=== PATIENT | female | born 1965 | race Caucasian/White ===

== ENCOUNTER 2023-07-15 01:24 | Inpatient (IN) | payer BC ==
[2023-07-15 02:43] VITALS: BMI 26.3
[2023-07-15] MEDS: fentaNYL 50 mcg/mL 1 mL Vial SLOW IVP SCH (02:46)
[2023-07-15] MEDS ORDERED: Acetaminophen 650 MG Suppository PR PRN (03:01)
[2023-07-15] MEDS ORDERED: Electrolyte Replacement Protocol 1 EACH IVPB SCH (03:01)
[2023-07-15] MEDS ORDERED: Acetaminophen 650 MG/20.3 ML UDCUP PO PRN (03:01)
[2023-07-15] MEDS ORDERED: Dextrose 50% Abboject 50 ML SYRINGE SLOW IVP PRN (03:03)
[2023-07-15] MEDS ORDERED: Glucagon 1 MG/ML KIT IM PRN (03:03)
[2023-07-15] MEDS ORDERED: Dextrose 5% in Water 1,000 ML IV PRN (03:03)
[2023-07-15] MEDS: Morphine 4 MG/ML VIAL SLOW IVP PRN (03:43)
[2023-07-15] MEDS ORDERED: hydrALAZINE 20 MG/ML VIAL SLOW IVP PRN (04:21)
[2023-07-15] MEDS: HYDROcodone/Acetaminophen 5/325 mg Tablet PO PRN (04:47)
[2023-07-15] MEDS: Nicotine 14 MG PATCH TD PRN (04:52)
[2023-07-15] MEDS: Ondansetron PF 4 MG/2 ML Vial IVP PRN (05:07)
[2023-07-15] MEDS: niCARdipine 25 MG in Sodium Chloride 0.9% 250 ML 250 ML IVPB SCH (06:05)
[2023-07-15] MEDS: HumaLOG 300 UNITS/3 ML VIAL SC PRN ×2 (06:46→12:11)
[2023-07-15 07:30] LABS: Hemoglobin A1c 6.4 % (4.0-6.0)
[2023-07-15] MEDS: Labetalol HCl 100 MG/20 ML VIAL SLOW IVP PRN (07:44)
[2023-07-15] MEDS: Famotidine 20 MG TAB PO SCH (07:45)
[2023-07-15] MEDS: Lisinopril 2.5 MG TAB PO SCH (07:46)
[2023-07-15] MEDS: HYDROmorphone 0.5 MG/0.5 ML SYRINGE SLOW IVP SCH (10:31)
[2023-07-15] MEDS ORDERED: Promethazine 25 MG TAB PO PRN (11:15)
[2023-07-15] MEDS ORDERED: Iopamidol-370 76% 500 ML MDV (1 ML CHARGE) ONE (11:51)
[2023-07-15] MEDS: BuPROPion XL 150 MG ER.TAB PO SCH (12:12)
[2023-07-15] MEDS: DULoxetine 60 MG CAP PO SCH (12:13)
[2023-07-15] MEDS ORDERED: tiZANidine HCl 4 MG TAB PO SCH (14:00)
[2023-07-15] MEDS: tiZANidine HCl 4 MG TAB PO PRN (20:12)
[2023-07-15] MEDS: hydrOXYzine 25 MG TAB PO SCH (20:12)
[2023-07-16 05:43] LABS: #Basophils Less than 0.03 10x3/uL (0.0-0.2); %Basophils 0.2 % (0.0-1.0); %Eosinophils 1.4 % (0.0-10.0); %Lymphocytes 19.4 % (21.0-51.0); %Monocytes 8.5 % (0.0-10.0); %Neutrophils 70.1 % (42.0-75.0); Hematocrit 39.9 % (36.0-47.0); Hemoglobin 14.4 g/dL (12.0-16.0); Mean Corpuscular HGB CONC 36.1 g/dL (32.0-36.0); Mean Corpuscular Hemoglobin 30.3 pg (27.0-31.0); Mean Corpuscular Volume 83.8 fL (78.0-98.0); Mean Platelet Volume 9.1 fL (7.4-10.4); Platelet Count 239 10x3/uL (130-400); RBC Distribution Width 12.4 % (11.5-14.5); Red Blood Cell (RBC) Count 4.76 mill/uL (4.20-5.40)
[2023-07-16 06:13] LABS: ALT (SGPT) 19 U/L (8-55); AST (SGOT) 17 U/L (5-34); Albumin 3.7 g/dL (3.5-5.0); Alkaline Phosphatase 70 U/L (40-110); Anion Gap 16 mmol/L (10-20); BUN (Urea Nitrogen) 13 mg/dL (9.8-20.1); Bilirubin, Total 0.7 mg/dL (0.2-1.2); Calc. Creatinine Clearance 110 mL/min (70-130); Carbon Dioxide 27 mmol/L (22-29); Chloride 95 mmol/L (98-107); Estimated GFR 100; Globulin 3.4 g/dL (2.4-3.5); Glucose 174 mg/dL (70-105); Potassium 3.8 mmol/L (3.5-5.1); Protein, Total 7.1 g/dL (6.0-8.3); Sodium 134 mmol/L (136-145)
[2023-07-16] MEDS ORDERED: Electrolyte Replacement Protocol FS PRN (08:00)
[2023-07-16] MEDS: DULoxetine 60 MG CAP PO SCH (08:59)
[2023-07-16] MEDS: BuPROPion XL 150 MG ER.TAB PO SCH (08:59)
[2023-07-16] MEDS: HYDROcodone/Acetaminophen 10/325 mg Tablet PO PRN (20:17)
[2023-07-17 04:53] LABS: #Basophils 0.03 10x3/uL (0.0-0.2); %Basophils 0.3 % (0.0-1.0); %Eosinophils 2.8 % (0.0-10.0); %Lymphocytes 25.1 % (21.0-51.0); %Monocytes 9.3 % (0.0-10.0); %Neutrophils 62.2 % (42.0-75.0); Hematocrit 37.4 % (36.0-47.0); Hemoglobin 13.4 g/dL (12.0-16.0); Mean Corpuscular HGB CONC 35.8 g/dL (32.0-36.0); Mean Corpuscular Hemoglobin 29.6 pg (27.0-31.0); Mean Corpuscular Volume 82.7 fL (78.0-98.0); Mean Platelet Volume 9.6 fL (7.4-10.4); Platelet Count 209 10x3/uL (130-400); RBC Distribution Width 12.4 % (11.5-14.5); Red Blood Cell (RBC) Count 4.52 mill/uL (4.20-5.40)
[2023-07-17 05:16] LABS: INR-International Normal Ratio 1.1; Prothrombin Time 13.7 sec (12.0-14.7)
[2023-07-17 05:17] LABS: PTT 36.5 sec (22.9-36.1)
[2023-07-17 05:38] LABS: ALT (SGPT) 17 U/L (8-55); AST (SGOT) 15 U/L (5-34); Albumin 3.3 g/dL (3.5-5.0); Alkaline Phosphatase 66 U/L (40-110); Anion Gap 13 mmol/L (10-20); BUN (Urea Nitrogen) 12 mg/dL (9.8-20.1); Bilirubin, Total 0.8 mg/dL (0.2-1.2); Calc. Creatinine Clearance 125 mL/min (70-130); Calcium 8.8 mg/dL (7.8-10.44); Carbon Dioxide 26 mmol/L (22-29); Chloride 100 mmol/L (98-107); Estimated GFR 103; Globulin 3.2 g/dL (2.4-3.5); Glucose 140 mg/dL (70-105); Potassium 3.7 mmol/L (3.5-5.1); Protein, Total 6.5 g/dL (6.0-8.3); Sodium 135 mmol/L (136-145)
[2023-07-17 08:07] VITALS: BP 152/80; TEMP 99.3
[2023-07-28 07:19] LABS: Metanephrine,Plasma 36.6 pg/mL (0.0-88.0)
[2023-07-31 07:20] LABS: Metanephrine,Ur 71 ug/L (Undefined); Metanephrines Total-24H 275 ug/24 hr (36-209); Normetanephrine,Ur 359 ug/L (Undefined); Normetanephrines-24H U 1391 ug/24 hr (131-612)
== END 2023-07-17 13:45 | disposition home or self-care (01) | DRG 181 ==
LOC: CCU 02:15 → MSONC 14:43
PROVIDERS: ADMIT Student in an Organized Health Care Education/Training Program; ATTEND Hospitalist
DX: C34.2 Malignant neoplasm of middle lobe, bronchus or lung (principal); C79.72 Secondary malignant neoplasm of left adrenal gland; I16.1 Hypertensive emergency; E27.49 Other adrenocortical insufficiency; E11.9 Type 2 diabetes mellitus without complications; I10 Essential (primary) hypertension; F17.200 Nicotine dependence, unspecified, uncomplicated; Z79.899 Other long term (current) drug therapy; Z90.710 Acquired absence of both cervix and uterus; Z79.84 Long term (current) use of oral hypoglycemic drugs; Z90.49 Acquired absence of other specified parts of digestive tract; Z79.4 Long term (current) use of insulin; R91.8 Other nonspecific abnormal finding of lung field; F17.210 Nicotine dependence, cigarettes, uncomplicated
CPT/HCPCS: 36415; 36416; 70553; 71260; 74176; 74177; 80053; 81001; 83036; 83690; 83835; 85025; 85610; 85730; 93005; 93010; 96374; 96375; 96376; J1170; J1815; J1885; J2270; J2405; J3010; J7050; Q9967

== ENCOUNTER 2023-07-29 10:07 | Observation (INO) | payer BC ==
[~2023-07-29 10:07] MED LIST: Iopamidol-370 76% 500 ML MDV (1 ML CHARGE) ONE
[2023-07-29] MEDS ORDERED: Morphine 4 MG/ML VIAL ONE (11:05)
[2023-07-29] MEDS ORDERED: Ondansetron PF 4 MG/2 ML Vial ONE (11:05)
[2023-07-29 11:21] LABS: #Basophils Less than 0.03 10x3/uL (0.0-0.2); %Basophils 0.2 % (0.0-1.0); %Eosinophils 1.5 % (0.0-10.0); %Monocytes 4.7 % (0.0-10.0); %Neutrophils 79.1 % (42.0-75.0); Hematocrit 39.6 % (36.0-47.0); Hemoglobin 14.6 g/dL (12.0-16.0); Mean Corpuscular HGB CONC 36.9 g/dL (32.0-36.0); Mean Corpuscular Hemoglobin 30.2 pg (27.0-31.0); Mean Corpuscular Volume 81.8 fL (78.0-98.0); Mean Platelet Volume 9.6 fL (7.4-10.4); Platelet Count 286 10x3/uL (130-400); RBC Distribution Width 12.3 % (11.5-14.5); Red Blood Cell (RBC) Count 4.84 mill/uL (4.20-5.40)
[2023-07-29 11:41] LABS: ALT (SGPT) 18 U/L (8-55); AST (SGOT) 14 U/L (5-34); Albumin 3.7 g/dL (3.5-5.0); Alkaline Phosphatase 83 U/L (40-110); Anion Gap 20 mmol/L (10-20); BUN (Urea Nitrogen) 10 mg/dL (9.8-20.1); Bilirubin, Total 0.9 mg/dL (0.2-1.2); Calc. Creatinine Clearance 0 mL/min (70-130); Calcium 9.3 mg/dL (7.8-10.44); Carbon Dioxide 20 mmol/L (22-29); Chloride 97 mmol/L (98-107); Estimated GFR 101; Globulin 3.5 g/dL (2.4-3.5); Glucose 243 mg/dL (70-105); Lipase 15 U/L (8-78); Potassium 4.1 mmol/L (3.5-5.1); Protein, Total 7.2 g/dL (6.0-8.3); Sodium 133 mmol/L (136-145)
[2023-07-29] MEDS ORDERED: Nitroglycerin 50 MG/250 ML BOT 250 ML ONE (13:14)
[2023-07-29] MEDS ORDERED: HYDROmorphone 0.5 MG/0.5 ML SYRINGE ONE (13:14)
[2023-07-29] MEDS ORDERED: Nicotine 14 MG PATCH ONE (14:40)
[2023-07-29 15:43] LABS: Magnesium 1.8 mg/dL (1.6-2.6); Phosphorus 3.5 mg/dL (2.3-4.7)
[2023-07-29] MEDS ORDERED: Dextrose 50% Abboject 50 ML SYRINGE SLOW IVP PRN (16:20)
[2023-07-29] MEDS ORDERED: Dextrose 5% in Water 1,000 ML IV PRN (16:20)
[2023-07-29] MEDS ORDERED: Glucagon 1 MG/ML KIT IM PRN (16:20)
[2023-07-29] MEDS ORDERED: HumaLOG 300 UNITS/3 ML VIAL SC PRN (16:20)
[2023-07-29] MEDS ORDERED: hydrALAZINE 25 MG TAB PO PRN (16:22)
[2023-07-29] MEDS ORDERED: HYDROcodone/Acetaminophen 5/325 mg Tablet PO PRN (16:22)
[2023-07-29] MEDS ORDERED: Nitroglycerin 0.4 MG TAB (25 Tab Bottle) SL PRN (16:23)
[2023-07-29] MEDS ORDERED: Acetaminophen 325 MG TAB PO PRN (16:25)
[2023-07-29] MEDS ORDERED: Calcium Carbonate 500 MG ChewTAB PO PRN (16:25)
[2023-07-29 16:27] LABS: Bacteria/HPF 1+ HPF (None Seen); Bilirubin Negative (Negative); Blood, Urine Negative (Negative); CAUTI Indications for Culture Alt mental st,lethar; Clarity Clear (Clear); Glucose, Urine (Dipstick) 500 mg/dL (Negative); Ketone, Urine 40 mg/dL (Negative); Leukocyte Negative Leu/uL (Negative); Mucous/LPF Rare LPF (<2+); Nitrite Negative (Negative); Protein, Urine (Dipstick) Negative (Neg-Trace); RBC/HPF 0-3 HPF (0-3); Specific Gravity, Urine 1.044 (1.002-1.036); Squamous Epithelial 0-3 HPF (0-3); Urobilinogen Normal mg/dL (Less than 2); WBC/HPF None Seen HPF (0-3)
[2023-07-29 16:28] LABS: Urine Culture Reflex No No
[2023-07-29] MEDS ORDERED: Metoprolol Tartrate 25 MG TAB PO PRN (17:52)
[2023-07-29] MEDS ORDERED: fentaNYL 25 mcg Patch TD SCH (18:00)
[2023-07-29] MEDS: HYDROcodone/Acetaminophen 7.5/325 mg Tablet PO PRN (19:29)
[2023-07-29] MEDS: Famotidine 20 MG TAB PO SCH (19:29)
[2023-07-29] MEDS: glyBURIDE 5 MG TAB PO SCH (19:29)
[2023-07-29] MEDS: Senokot S 8.6-50 MG TAB PO SCH (19:30)
[2023-07-29] MEDS: Polyethylene Glycol 3350 17 GM Packet PO SCH (19:30)
[2023-07-29] MEDS: Ondansetron ODT 4 MG TAB PO PRN (19:42)
[2023-07-29] MEDS: Sodium Chloride 0.9% 1,000 ML IV SCH (20:14)
[2023-07-29] MEDS: Magnesium 2 GM/50 ML(in water) 2 GM in Premix 1 BAG IVPB SCH (20:14)
[2023-07-29 20:26] VITALS: BMI 29.0
[2023-07-29] MEDS: Famotidine/PF 20 mg/2ml Vial SLOW IVP SCH (20:29)
[2023-07-29] MEDS: Morphine 2 MG/ML VIAL SLOW IVP SCH (21:02)
[2023-07-29] MEDS: tiZANidine HCl 4 MG TAB PO SCH (21:03)
[2023-07-30 06:20] LABS: #Basophils Less than 0.03 10x3/uL (0.0-0.2); %Basophils 0.1 % (0.0-1.0); %Eosinophils 5.4 % (0.0-10.0); %Monocytes 10.3 % (0.0-10.0); %Neutrophils 54.7 % (42.0-75.0); Hematocrit 37.3 % (36.0-47.0); Hemoglobin 13.3 g/dL (12.0-16.0); Mean Corpuscular HGB CONC 35.7 g/dL (32.0-36.0); Mean Corpuscular Hemoglobin 30.4 pg (27.0-31.0); Mean Corpuscular Volume 85.2 fL (78.0-98.0); Mean Platelet Volume 9.6 fL (7.4-10.4); Platelet Count 251 10x3/uL (130-400); RBC Distribution Width 12.7 % (11.5-14.5); Red Blood Cell (RBC) Count 4.38 mill/uL (4.20-5.40)
[2023-07-30 06:53] LABS: ALT (SGPT) 14 U/L (8-55); AST (SGOT) 11 U/L (5-34); Albumin 3.2 g/dL (3.5-5.0); Alkaline Phosphatase 66 U/L (40-110); Anion Gap 15 mmol/L (10-20); BUN (Urea Nitrogen) 7 mg/dL (9.8-20.1); Bilirubin, Total 0.5 mg/dL (0.2-1.2); Calc. Creatinine Clearance 124 mL/min (70-130); Calcium 8.4 mg/dL (7.8-10.44); Carbon Dioxide 23 mmol/L (22-29); Chloride 102 mmol/L (98-107); Estimated GFR 104; Glucose 113 mg/dL (70-105); Potassium 3.6 mmol/L (3.5-5.1); Protein, Total 6.2 g/dL (6.0-8.3); Sodium 136 mmol/L (136-145)
[2023-07-30] MEDS: Morphine 4 MG/ML VIAL ONE (09:49)
[2023-07-30] MEDS: BuPROPion XL 150 MG ER.TAB PO SCH (09:50)
[2023-07-30] MEDS: DULoxetine 60 MG CAP PO SCH (09:50)
[2023-07-30] MEDS: Lisinopril 2.5 MG TAB PO SCH (09:53)
[2023-07-30] MEDS: Milk Of Magnesia 30 ML UDCUP PO SCH (10:04)
[2023-07-30] MEDS: Morphine 2 MG/ML VIAL SLOW IVP PRN (12:09)
[2023-07-30] MEDS: fentaNYL 12 mcg Patch TD SCH (12:10)
[2023-07-30] MEDS: HYDROcodone/Acetaminophen 10/325 mg Tablet PO PRN (14:43)
[2023-07-30] MEDS: Nicotine 21 MG PATCH TD SCH (18:35)
[2023-07-30] MEDS: HumaLOG 300 UNITS/3 ML VIAL SC PRN (18:36)
[2023-07-31] MEDS: Ondansetron PF 4 MG/2 ML Vial IVP PRN (03:13)
[2023-07-31] MEDS: glyBURIDE 5 MG TAB PO SCH (08:34)
[2023-07-31] MEDS: Morphine ER 15 MG TAB PO SCH (09:53)
[2023-07-31 12:12] VITALS: BP 164/92; TEMP 98.4
[2023-07-31] MEDS ORDERED: glyBURIDE 5 MG TAB PO SCH (16:30)
[2023-07-31] MEDS ORDERED: Morphine ER 15 MG TAB PO SCH (21:00)
== END 2023-07-31 14:42 | disposition home or self-care (01) ==
LOC: ERS 10:07 → ERHOLD 14:00 → 2SW 18:08 → MSONC 07-30 18:47
PROVIDERS: ADMIT Internal Medicine; ATTEND Internal Medicine
DX: R11.2 Nausea with vomiting, unspecified (principal); K59.00 Constipation, unspecified; E11.9 Type 2 diabetes mellitus without complications; I10 Essential (primary) hypertension; F41.9 Anxiety disorder, unspecified; F17.210 Nicotine dependence, cigarettes, uncomplicated; I16.0 Hypertensive urgency; E83.42 Hypomagnesemia; Z90.710 Acquired absence of both cervix and uterus; Z90.49 Acquired absence of other specified parts of digestive tract; Z98.890 Other specified postprocedural states; Z79.84 Long term (current) use of oral hypoglycemic drugs; Z88.8 Allergy status to other drugs, medicaments and biological substances; Z79.899 Other long term (current) drug therapy
CPT/HCPCS: 36415; 36416; 70450; 74177; 80053; 81001; 82533; 83690; 83735; 84100; 85025; 93005; 94760; 96361; 96374; 96375; 96376; G0378; J1170; J1815; J2270; J2272; J2405; J3475; J7050; Q0162; Q9967

== ENCOUNTER 2023-08-01 08:15 | Day surgery (SDC) | payer BC ==
[2023-08-01] MEDS ORDERED: Lidocaine 1% PF 5 ML VIAL ONE (09:43)
[2023-08-01] MEDS ORDERED: Sodium Bicarbonate 2.5 MEQ/5 ML SDV ONE (09:43)
[2023-08-01] MEDS ORDERED: fentaNYL 50 mcg/mL 1 mL Vial ONE (09:44)
[2023-08-01] MEDS ORDERED: Midazolam HCl 2 mg/2 ml Vial ONE (09:44)
== END 2023-08-01 14:00 | disposition home or self-care (01) ==
LOC: CT 08:15
PROVIDERS: ATTEND Nurse Practitioner Family
PROC: 0BBD3ZX Excision of Right Middle Lung Lobe, Percutaneous Approach, Diagnostic (ICD-10-PCS; principal; 2023-08-01)
DX: J85.0 Gangrene and necrosis of lung (principal); R91.1 Solitary pulmonary nodule; E11.9 Type 2 diabetes mellitus without complications; F17.210 Nicotine dependence, cigarettes, uncomplicated; E27.49 Other adrenocortical insufficiency; I16.1 Hypertensive emergency; Z88.8 Allergy status to other drugs, medicaments and biological substances; Z90.49 Acquired absence of other specified parts of digestive tract; Z90.710 Acquired absence of both cervix and uterus
CPT/HCPCS: 32408; 71045; 77012; 88305; 88333; 88334; J2250; J3010

== ENCOUNTER 2023-08-21 08:00 | Outpatient (CLI) | payer BC | END 2023-08-21 08:01 | disposition home or self-care (01) | LOC: PET 08:00 | PROVIDERS: ATTEND Internal Medicine Hematology & Oncology | DX: C34.31 Malignant neoplasm of lower lobe, right bronchus or lung (principal); C34.2 Malignant neoplasm of middle lobe, bronchus or lung; C77.1 Secondary and unspecified malignant neoplasm of intrathoracic lymph nodes; C79.72 Secondary malignant neoplasm of left adrenal gland; C79.71 Secondary malignant neoplasm of right adrenal gland | CPT/HCPCS: 78815; A9552 ==

== ENCOUNTER 2023-09-03 10:43 | Outpatient (CLI) | payer BC ==
[2023-09-03 11:58] LABS: Bilirubin Neg (Negative); Blood, Urine Negative (Negative); Clarity Clear (Clear); Glucose, Urine (Dipstick) >=1000 mg/dL (Negative); Ketone, Urine Negative (Negative); Leukocyte Negative (Negative); Nitrite Negative (Negative); Protein, Urine (Dipstick) Negative (Neg-Trace); Urobilinogen Normal mg/dL (Less than 2)
[2023-09-03 12:01] LABS: Hematocrit 43.3 % (34.9-44.5); Hemoglobin 14.9 g/dL (12.0-15.5); Mean Corpuscular HGB CONC 34.4 g/dL (32.0-36.0); Mean Corpuscular Hemoglobin 28.7 pg (27.0-33.0); Mean Corpuscular Volume 83.4 fL (81.6-98.3); Mean Platelet Volume 9.6 fL (7.4-10.4); Platelet Count 268 10x3/uL (150-450); RBC Distribution Width 12.5 % (11.5-14.5); Red Blood Cell (RBC) Count 5.19 10x6/uL (3.90-5.03); White Blood Cell (WBC) Count 8.2 10x3/uL (3.5-10.5)
[2023-09-03 12:32] LABS: PTT 27.7 sec (22.0-33.0); Prothrombin Time 10.6 sec (9.5-12.1)
[2023-09-03 12:33] LABS: Bacteria/HPF Rare-Few HPF (None Seen); RBC/HPF 0-3 HPF (0-3); Squamous Epithelial 0-3 HPF (0-3); WBC/HPF None Seen HPF (0-3)
[2023-09-03 12:37] LABS: Anion Gap 14 mmol/L (10-20); BUN (Urea Nitrogen) 9 mg/dL (9.8-20.1); Calc. Creatinine Clearance 0 mL/min (70-130); Calcium 9.6 mg/dL (7.8-10.44); Carbon Dioxide 27 mmol/L (22-29); Chloride 99 mmol/L (98-107); Estimated GFR 95; Glucose 173 mg/dL (70-105); Potassium 4.2 mmol/L (3.5-5.1); Sodium 136 mmol/L (136-145)
== END 2023-09-03 10:44 | disposition home or self-care (01) ==
LOC: LABBT 10:43
PROVIDERS: ATTEND Urology
DX: Z01.818 Encounter for other preprocedural examination (principal); E27.8 Other specified disorders of adrenal gland; C34.90 Malignant neoplasm of unspecified part of unspecified bronchus or lung; C79.89 Secondary malignant neoplasm of other specified sites
CPT/HCPCS: 71046; 80048; 81001; 85027; 85610; 85730; 86850; 86900; 86901; 87086

== ENCOUNTER 2023-11-05 11:43 | Outpatient (CLI) | payer BC ==
[~2023-11-05 11:43] MED LIST changes: -Iopamidol-370 76% 500 ML MDV (1 ML CHARGE) ONE; +Magnevist 469MG/ML 20 ML VIAL ONE
== END 2023-11-05 11:44 | disposition home or self-care (01) ==
LOC: PET 11:43
PROVIDERS: ATTEND Internal Medicine Hematology & Oncology
DX: C78.00 Secondary malignant neoplasm of unspecified lung (principal); I67.82 Cerebral ischemia; R90.82 White matter disease, unspecified
CPT/HCPCS: 70553; 76376; 78815; A9552; A9579

== ENCOUNTER 2023-11-30 10:47 | Outpatient (CLI) | payer BC | END 2023-11-30 10:48 | disposition home or self-care (01) | LOC: BICRAD 10:47 | PROVIDERS: ATTEND Nurse Practitioner Family | DX: C34.31 Malignant neoplasm of lower lobe, right bronchus or lung (principal); C80.1 Malignant (primary) neoplasm, unspecified; Z45.2 Encounter for adjustment and management of vascular access device; R91.8 Other nonspecific abnormal finding of lung field | CPT/HCPCS: 71046 ==

== ENCOUNTER 2023-12-04 10:39 | Emergency (ER) | payer BC ==
[~2023-12-04 10:39] MED LIST changes: +Iopamidol 370 76% 100 ML VIAL ONE; -Magnevist 469MG/ML 20 ML VIAL ONE
[2023-12-04 12:29] LABS: INR-International Normal Ratio 1.1; PTT 32.7 sec (22.9-36.1); Prothrombin Time 14.7 sec (12.0-14.7)
[2023-12-04 12:37] LABS: ALT (SGPT) 20 U/L (8-55); AST (SGOT) 14 U/L (5-34); Albumin 3.3 g/dL (3.5-5.0); Alkaline Phosphatase 80 U/L (40-110); Anion Gap 14 mmol/L (10-20); BUN (Urea Nitrogen) 11 mg/dL (9.8-20.1); Bilirubin, Total 0.3 mg/dL (0.2-1.2); Calc. Creatinine Clearance 0 mL/min (70-130); Calcium 9.4 mg/dL (7.8-10.44); Carbon Dioxide 16 mmol/L (22-29); Chloride 105 mmol/L (98-107); Estimated GFR 92; Globulin 4.1 g/dL (2.4-3.5); Glucose 128 mg/dL (70-105); Potassium 4.4 mmol/L (3.5-5.1); Protein, Total 7.4 g/dL (6.0-8.3); Sodium 131 mmol/L (136-145); Troponin I 0.022 ng/mL (< 0.028)
[2023-12-04 12:38] LABS: Hematocrit 25.8 % (36.0-47.0); Hemoglobin 9.3 g/dL (12.0-16.0); Mean Platelet Volume 9.8 fL (7.4-10.4); Platelet Count 91 10x3/uL (130-400); RBC Distribution Width 15.7 % (11.5-14.5); Red Blood Cell (RBC) Count 3.44 mill/uL (4.20-5.40)
[2023-12-04 12:59] LABS: Band 2 % (5-11); Eosinophils 1 % (0-10); Large Platelets 4.3 % (0-5); Lymphocytes 64 % (21-51); Monocytes 11 % (0-10); Neutrophil 21 % (42-75); Platelet Adequacy Comment Platelets Decreased; Polychromasia SLIGHT = 2-3 cells HPF (0-2); Smudge Cells 7.8 %; Spherocytes SLIGHT = 1-5 cells HPF (None Seen)
[2023-12-04] MEDS ORDERED: cefTRIAXone (ROCEPHIN) 1 GM VIAL ONE (14:29)
[2023-12-04] MEDS ORDERED: Dexamethasone 10 MG/ML VIAL ONE (14:29)
[2023-12-04] MEDS ORDERED: Sodium Chloride 0.9% 100 ML ONE (14:30)
[2023-12-04] MEDS ORDERED: Ipratropium/Albuterol 3 ML NEB ONE (14:32)
== END 2023-12-04 16:10 | disposition home or self-care (01) ==
LOC: ERS 10:39
DX: J15.9 Unspecified bacterial pneumonia (principal); I10 Essential (primary) hypertension; E11.9 Type 2 diabetes mellitus without complications; F17.210 Nicotine dependence, cigarettes, uncomplicated
CPT/HCPCS: 71275; 80053; 83605; 83880; 84484; 85025; 85610; 85730; 93005; 94640; 96374; 96375; J0696; J1100; J7620; Q9967

== ENCOUNTER 2024-01-07 08:14 | Day surgery (SDC) | payer BC ==
[2024-01-07] MEDS ORDERED: diphenhydrAMINE 25 MG CAP ONE (10:14)
[2024-01-07] MEDS ORDERED: Acetaminophen 500 MG TAB ONE (10:14)
[2024-01-07] MEDS: diphenhydrAMINE 25 MG CAP PO SCH (10:15)
[2024-01-07] MEDS: Acetaminophen 500 MG TAB PO SCH (10:15)
[2024-01-07 13:06] VITALS: BP 138/70; TEMP 99.3
== END 2024-01-07 13:20 | disposition home or self-care (01) ==
LOC: ONC/OP 08:14
PROVIDERS: ATTEND Internal Medicine Hematology & Oncology
DX: D64.9 Anemia, unspecified (principal); D69.6 Thrombocytopenia, unspecified
CPT/HCPCS: 36430; 86850; 86900; 86901; 86922; J1642; P9016

== ENCOUNTER 2024-01-22 13:00 | Outpatient (CLI) | payer BC | END 2024-01-22 15:00 | disposition home or self-care (01) | LOC: PET 13:00 | PROVIDERS: ATTEND Internal Medicine Hematology & Oncology | DX: C34.31 Malignant neoplasm of lower lobe, right bronchus or lung (principal); R59.0 Localized enlarged lymph nodes; R91.8 Other nonspecific abnormal finding of lung field | CPT/HCPCS: 78815; A9552 ==

== ENCOUNTER 2024-02-04 01:47 | Observation (INO) | payer BC ==
[2024-02-04] MEDS ORDERED: Ketorolac Tromethamine 30 MG (1 mL) VIAL ONE (01:59)
[2024-02-04] MEDS ORDERED: Ondansetron PF 4 MG/2 ML Vial ONE (01:59)
[2024-02-04] MEDS ORDERED: Lorazepam 2 MG/ML VIAL ONE (01:59)
[2024-02-04] MEDS ORDERED: fentaNYL 50 mcg/mL 1 mL Vial ONE (01:59)
[2024-02-04] MEDS ORDERED: hydrALAZINE 20 MG/ML VIAL ONE (03:08)
[2024-02-04 03:27] LABS: #Basophils Less than 0.03 10x3/uL (0.0-0.2); #Eosinophils Less than 0.03 10x3/uL (0.0-0.7); %Basophils 0.2 % (0.0-1.0); %Eosinophils 0.4 % (0.0-10.0); %Monocytes 6.8 % (0.0-10.0); %Neutrophils 67.9 % (42.0-75.0); Hematocrit 29.5 % (36.0-47.0); Hemoglobin 10.1 g/dL (12.0-16.0); Mean Corpuscular HGB CONC 34.2 g/dL (32.0-36.0); Mean Corpuscular Hemoglobin 31.1 pg (27.0-31.0); Mean Corpuscular Volume 90.8 fL (78.0-98.0); Mean Platelet Volume 9.2 fL (7.4-10.4); Platelet Count 152 10x3/uL (130-400); RBC Distribution Width 17.1 % (11.5-14.5); Red Blood Cell (RBC) Count 3.25 mill/uL (4.20-5.40)
[2024-02-04 03:40] LABS: ALT (SGPT) 9 U/L (8-55); AST (SGOT) 12 U/L (5-34); Albumin 3.6 g/dL (3.5-5.0); Alkaline Phosphatase 75 U/L (40-110); Anion Gap 16 mmol/L (10-20); BUN (Urea Nitrogen) 12 mg/dL (9.8-20.1); Bilirubin, Total 0.4 mg/dL (0.2-1.2); Calc. Creatinine Clearance 0 mL/min (70-130); Calcium 8.8 mg/dL (7.8-10.44); Carbon Dioxide 21 mmol/L (22-29); Chloride 96 mmol/L (98-107); Estimated GFR 101; Globulin 3.9 g/dL (2.4-3.5); Glucose 169 mg/dL (70-105); Lipase 13 U/L (8-78); Potassium 3.7 mmol/L (3.5-5.1); Protein, Total 7.5 g/dL (6.0-8.3); Sodium 129 mmol/L (136-145)
[2024-02-04 03:45] LABS: Troponin I 0.019 ng/mL (< 0.028)
[2024-02-04] MEDS ORDERED: Morphine 4 MG/ML VIAL ONE (05:01)
[2024-02-04 05:14] LABS: Bacteria/HPF None Seen HPF (None Seen); Bilirubin Negative (Negative); Blood, Urine Negative (Negative); CAUTI Indications for Culture Immunosuppressed; Clarity Clear (Clear); Glucose, Urine (Dipstick) 100 mg/dL (Negative); Ketone, Urine Negative (Negative); Leukocyte Negative Leu/uL (Negative); Nitrite Negative (Negative); Protein, Urine (Dipstick) Negative (Neg-Trace); RBC/HPF None Seen HPF (0-3); Specific Gravity, Urine 1.021 (1.002-1.036); Squamous Epithelial 0-3 HPF (0-3); Urobilinogen Normal mg/dL (Less than 2); WBC/HPF 0-3 HPF (0-3)
[2024-02-04 05:17] LABS: Urine Culture Reflex Yes Yes
[2024-02-04 06:50] VITALS: BMI 23.3
[2024-02-04] MEDS ORDERED: Labetalol HCl 100 MG/20 ML VIAL SLOW IVP PRN (06:55)
[2024-02-04] MEDS ORDERED: Dextrose 5% in Water 1,000 ML IV PRN (06:57)
[2024-02-04] MEDS ORDERED: Dextrose 50% Abboject 50 ML SYRINGE SLOW IVP PRN (06:57)
[2024-02-04] MEDS ORDERED: Glucagon 1 MG/ML KIT IM PRN (06:57)
[2024-02-04] MEDS ORDERED: Insulin Regular, Human 100 UNIT/ML 10 ML VIAL SC PRN ×2 (06:57)
[2024-02-04] MEDS ORDERED: Acetaminophen 325 MG TAB PO PRN (06:59)
[2024-02-04] MEDS ORDERED: Ondansetron ODT 4 MG TAB PO PRN (06:59)
[2024-02-04] MEDS ORDERED: Calcium Carbonate 500 MG ChewTAB PO PRN (06:59)
[2024-02-04 08:02] LABS: Magnesium 1.7 mg/dL (1.6-2.6); Phosphorus 3.7 mg/dL (2.3-4.7)
[2024-02-04] MEDS ORDERED: Ondansetron ODT 4 MG TAB ONE (08:24)
[2024-02-04] MEDS: Bisacodyl 10 MG SUPP PR SCH ×2 (09:50→10:07)
[2024-02-04] MEDS: Fleet Saline Enema 133 ML BOT PR SCH ×2 (09:51→10:06)
[2024-02-04] MEDS: Lactated Ringer's 1,000 ML IV SCH (10:06)
[2024-02-04] MEDS: Senokot S 8.6-50 MG TAB PO SCH (10:06)
[2024-02-04] MEDS: Heparin 5,000 UNITS/ML VIAL SC SCH (10:06)
[2024-02-04] MEDS: Ondansetron PF 4 MG/2 ML Vial IVP PRN (10:06)
[2024-02-04] MEDS: Polyethylene Glycol 3350 17 GM Packet PO SCH (10:07)
[2024-02-04] MEDS: fentaNYL 25 mcg Patch TD SCH (12:49)
[2024-02-04] MEDS: Lorazepam 2 MG/ML VIAL SLOW IVP PRN (12:49)
[2024-02-04] MEDS: Ketorolac Tromethamine 30 MG (1 mL) VIAL IVP PRN (12:49)
[2024-02-04] MEDS ORDERED: Iopamidol-370 76% 500 ML MDV (1 ML CHARGE) ONE (13:32)
[2024-02-04] MEDS ORDERED: Promethazine 25 MG TAB PO PRN (15:09)
[2024-02-04] MEDS ORDERED: fentaNYL 25 mcg Patch TD SCH ×2 (15:15→16:00)
[2024-02-04] MEDS: Nicotine 21 MG PATCH TD SCH (16:21)
[2024-02-04] MEDS: fentaNYL 12 mcg Patch TD SCH (16:21)
[2024-02-04] MEDS: hydrOXYzine 25 MG TAB PO SCH (21:21)
[2024-02-04] MEDS: Melatonin 3 MG TAB PO SCH (21:21)
[2024-02-04] MEDS: glyBURIDE 5 MG TAB PO SCH (21:21)
[2024-02-04] MEDS: tiZANidine HCl 4 MG TAB PO SCH (21:21)
[2024-02-05 06:31] LABS: #Basophils Less than 0.03 10x3/uL (0.0-0.2); %Basophils 0.2 % (0.0-1.0); %Eosinophils 1.6 % (0.0-10.0); %Lymphocytes 35.4 % (21.0-51.0); %Neutrophils 53.2 % (42.0-75.0); Hemoglobin 10.8 g/dL (12.0-16.0); Mean Corpuscular HGB CONC 34.8 g/dL (32.0-36.0); Mean Corpuscular Hemoglobin 31.5 pg (27.0-31.0); Mean Corpuscular Volume 90.4 fL (78.0-98.0); Mean Platelet Volume 9.3 fL (7.4-10.4); Platelet Count 197 10x3/uL (130-400); RBC Distribution Width 17.5 % (11.5-14.5); Red Blood Cell (RBC) Count 3.43 mill/uL (4.20-5.40)
[2024-02-05 06:56] LABS: ALT (SGPT) 9 U/L (8-55); AST (SGOT) 16 U/L (5-34); Albumin 3.4 g/dL (3.5-5.0); Alkaline Phosphatase 65 U/L (40-110); Anion Gap 13 mmol/L (10-20); BUN (Urea Nitrogen) 11 mg/dL (9.8-20.1); Bilirubin, Total 0.5 mg/dL (0.2-1.2); Calc. Creatinine Clearance 90 mL/min (70-130); Calcium 9.2 mg/dL (7.8-10.44); Carbon Dioxide 23 mmol/L (22-29); Chloride 95 mmol/L (98-107); Estimated GFR 100; Globulin 3.5 g/dL (2.4-3.5); Glucose 60 mg/dL (70-105); Protein, Total 6.9 g/dL (6.0-8.3); Sodium 127 mmol/L (136-145)
[2024-02-05 06:58] LABS: Phosphorus 5.1 mg/dL (2.3-4.7)
[2024-02-05 08:40] VITALS: BP 101/66; TEMP 97.4
[2024-02-05] MEDS: BuPROPion XL 150 MG ER.TAB PO SCH (09:31)
[2024-02-05] MEDS: Lisinopril 10 MG TAB PO SCH (09:31)
[2024-02-05] MEDS: DULoxetine 60 MG CAP PO SCH (09:32)
[2024-02-05] MEDS: FLU (Fluarix Triv) TS24-25(6MOS UP)/PF 45 MCG/0.5 ML Syringe IM ONE (09:32)
[2024-02-07] MEDS ORDERED: fentaNYL 25 mcg Patch TD SCH (16:00)
== END 2024-02-05 13:58 | disposition home or self-care (01) ==
LOC: ERS 01:47 → ERHOLD 04:53 → T4-A 09:24
PROVIDERS: ADMIT Internal Medicine; ATTEND Internal Medicine
DX: C74.90 Malignant neoplasm of unspecified part of unspecified adrenal gland (principal); F41.9 Anxiety disorder, unspecified; C79.9 Secondary malignant neoplasm of unspecified site; E11.9 Type 2 diabetes mellitus without complications; E87.1 Hypo-osmolality and hyponatremia; D64.9 Anemia, unspecified; I10 Essential (primary) hypertension; E83.42 Hypomagnesemia; Z90.710 Acquired absence of both cervix and uterus; Z90.49 Acquired absence of other specified parts of digestive tract; Z90.89 Acquired absence of other organs; Z98.890 Other specified postprocedural states; F17.200 Nicotine dependence, unspecified, uncomplicated; Z79.84 Long term (current) use of oral hypoglycemic drugs; Z79.899 Other long term (current) drug therapy
CPT/HCPCS: 36415; 36416; 71045; 74177; 80053; 81001; 83690; 83735; 84100; 84484; 85025; 87086; 93005; 96372; 96375; 96376; G0378; J0360; J1644; J1885; J2060; J2272; J2405; J3010; J7120; Q0162; Q9967

== ENCOUNTER 2024-02-19 08:43 | Inpatient (IN) | payer BC ==
[2024-02-19] MEDS ORDERED: Morphine 4 MG/ML VIAL ONE (09:18)
[2024-02-19] MEDS ORDERED: Ondansetron PF 4 MG/2 ML Vial ONE (09:19)
[2024-02-19] MEDS ORDERED: Morphine 2 MG/ML VIAL ONE (09:19)
[2024-02-19 09:46] LABS: #Basophils Less than 0.03 10x3/uL (0.0-0.2); %Basophils 0.1 % (0.0-1.0); %Eosinophils 0.6 % (0.0-10.0); %Lymphocytes 21.4 % (21.0-51.0); %Monocytes 5.5 % (0.0-10.0); %Neutrophils 71.5 % (42.0-75.0); Hematocrit 30.7 % (36.0-47.0); Hemoglobin 10.8 g/dL (12.0-16.0); Mean Corpuscular HGB CONC 35.2 g/dL (32.0-36.0); Mean Corpuscular Hemoglobin 32.3 pg (27.0-31.0); Mean Corpuscular Volume 91.9 fL (78.0-98.0); Mean Platelet Volume 8.9 fL (7.4-10.4); Platelet Count 176 10x3/uL (130-400); RBC Distribution Width 16.6 % (11.5-14.5); Red Blood Cell (RBC) Count 3.34 mill/uL (4.20-5.40)
[2024-02-19 10:09] LABS: Prothrombin Time 13.5 sec (12.0-14.7)
[2024-02-19 10:10] LABS: PTT 32.1 sec (22.9-36.1)
[2024-02-19] MEDS ORDERED: fentaNYL 50 mcg/mL 1 mL Vial ONE (10:11)
[2024-02-19 10:13] LABS: ALT (SGPT) 13 U/L (8-55); AST (SGOT) 16 U/L (5-34); Albumin 3.8 g/dL (3.5-5.0); Alkaline Phosphatase 76 U/L (40-110); Anion Gap 19 mmol/L (10-20); BUN (Urea Nitrogen) 13 mg/dL (9.8-20.1); Bilirubin, Total 0.5 mg/dL (0.2-1.2); Calc. Creatinine Clearance 0 mL/min (70-130); Calcium 9.7 mg/dL (7.8-10.44); Carbon Dioxide 19 mmol/L (22-29); Chloride 100 mmol/L (98-107); Estimated GFR 91; Globulin 4.2 g/dL (2.4-3.5); Glucose 92 mg/dL (70-105); Potassium 5.1 mmol/L (3.5-5.1); Sodium 133 mmol/L (136-145)
[2024-02-19] MEDS ORDERED: Insulin Lispro 100 UNIT/ML 10 ML VIAL SC PRN (10:39)
[2024-02-19] MEDS ORDERED: Glucagon 1 MG/ML KIT IM PRN (10:39)
[2024-02-19] MEDS ORDERED: Dextrose 5% in Water 1,000 ML IV PRN (10:39)
[2024-02-19] MEDS ORDERED: Dextrose 50% Abboject 50 ML SYRINGE SLOW IVP PRN (10:39)
[2024-02-19] MEDS ORDERED: Acetaminophen 325 MG TAB PO PRN (10:39)
[2024-02-19] MEDS ORDERED: hydrALAZINE 20 MG/ML VIAL SLOW IVP PRN (10:39)
[2024-02-19] MEDS: Methocarbamol 1 GM (10 mL) VIAL SLOW IVP SCH (11:54)
[2024-02-19] MEDS: Morphine 2 MG/ML VIAL SLOW IVP PRN (11:59)
[2024-02-19] MEDS ORDERED: CEFAZOLIN 2 GM in Sodium Chloride 0.9% 100 ML IVPB SCH (12:00)
[2024-02-19 12:08] VITALS: BMI 23.0
[2024-02-19] MEDS: TETANUS, DIPHTHERIA TOX,ADULT (TDVAX) 0.5 ML VIAL IM ONE (12:11)
[2024-02-19] MEDS: Nicotine 21 MG PATCH TOP SCH (12:57)
[2024-02-19] MEDS: HYDROcodone/Acetaminophen 5/325 mg Tablet PO PRN (13:02)
[2024-02-19] MEDS: Methocarbamol 500 MG TAB PO PRN (16:15)
[2024-02-19] MEDS: glyBURIDE 5 MG TAB PO SCH (16:39)
[2024-02-19] MEDS: metFORMIN XR 500 MG ER.TAB PO SCH (17:57)
[2024-02-19] MEDS: tiZANidine HCl 4 MG TAB PO SCH (21:26)
[2024-02-19] MEDS: hydrOXYzine 25 MG TAB PO SCH (21:26)
[2024-02-19] MEDS: HYDROcodone/Acetaminophen 10/325 mg Tablet PO PRN (22:19)
[2024-02-20 05:18] LABS: #Basophils Less than 0.03 10x3/uL (0.0-0.2); %Basophils 0.3 % (0.0-1.0); %Eosinophils 1.2 % (0.0-10.0); %Lymphocytes 24.1 % (21.0-51.0); %Monocytes 6.7 % (0.0-10.0); %Neutrophils 67.4 % (42.0-75.0); Hematocrit 30.7 % (36.0-47.0); Hemoglobin 10.6 g/dL (12.0-16.0); Mean Corpuscular HGB CONC 34.5 g/dL (32.0-36.0); Mean Corpuscular Hemoglobin 32.1 pg (27.0-31.0); Platelet Count 139 10x3/uL (130-400); RBC Distribution Width 16.7 % (11.5-14.5)
[2024-02-20 06:29] LABS: Anion Gap 16 mmol/L (10-20); BUN (Urea Nitrogen) 12 mg/dL (9.8-20.1); Calc. Creatinine Clearance 95 mL/min (70-130); Calcium 9.4 mg/dL (7.8-10.44); Carbon Dioxide 21 mmol/L (22-29); Chloride 100 mmol/L (98-107); Estimated GFR 101; Glucose 105 mg/dL (70-105); Potassium 4.4 mmol/L (3.5-5.1); Sodium 133 mmol/L (136-145)
[2024-02-20] MEDS: Nicotine 21 MG PATCH TD SCH (08:00)
[2024-02-20] MEDS: Cyclobenzaprine 10 MG TAB PO PRN (09:09)
[2024-02-20] MEDS: DULoxetine 60 MG CAP PO SCH (09:09)
[2024-02-20] MEDS: BuPROPion XL 150 MG ER.TAB PO SCH (09:09)
[2024-02-20] MEDS ORDERED: fentaNYL PF 100 MCG/2 ML SYRINGE ONE ×3 (10:48→14:09)
[2024-02-20] MEDS ORDERED: Lidocaine 1% PF 5 ML VIAL ONE (10:48)
[2024-02-20] MEDS ORDERED: PROPOFOL 20 ML ONE (10:48)
[2024-02-20] MEDS: Lisinopril 10 MG TAB PO SCH (10:50)
[2024-02-20] MEDS ORDERED: CEFAZOLIN 2 GM VIAL ONE (11:28)
[2024-02-20] MEDS ORDERED: Morphine 2 MG/ML VIAL ONE (11:31)
[2024-02-20] MEDS ORDERED: fentaNYL 50 mcg/mL 1 mL Vial ONE (12:14)
[2024-02-20] MEDS ORDERED: KETAMINE 100 MG/ML (5ML VIAL) ONE (12:22)
[2024-02-20] MEDS ORDERED: Rocuronium Bromide 10 MG/ML (10ML VIAL) ONE (12:23)
[2024-02-20] MEDS ORDERED: Sterile Water 10 ML ONE (12:24)
[2024-02-20] MEDS ORDERED: Ondansetron PF 4 MG/2 ML Vial ONE (12:46)
[2024-02-20] MEDS ORDERED: Dexamethasone 20 MG/5 ML VIAL ONE (12:46)
[2024-02-20] MEDS ORDERED: PHENYLEPHRINE-NS 100 MCG/ML 10 ML SYRINGE ONE (13:03)
[2024-02-20] MEDS ORDERED: SUGAMMADEX SODIUM 200 MG/2 ML VIAL ONE (13:29)
[2024-02-20] MEDS ORDERED: Esmolol 100 MG/10 ML VIAL ONE ×2 (13:38)
[2024-02-20] MEDS ORDERED: HYDROmorphone 0.5 MG/0.5 ML SYRINGE ONE ×2 (13:58→14:09)
[2024-02-20] MEDS ORDERED: Promethazine HCl 25 MG/ML VIAL ONE (14:22)
[2024-02-20 16:08] VITALS: BMI 23.0
[2024-02-20] MEDS: CEFAZOLIN 2 GM in Sodium Chloride 0.9% 100 ML IVPB SCH (20:36)
[2024-02-21] MEDS: Morphine 2 MG/ML VIAL SLOW IVP SCH ×2 (01:18→04:00)
[2024-02-21] MEDS: oxyCODONE 5 MG TAB PO PRN (09:20)
[2024-02-21] MEDS: fentaNYL 12 mcg Patch TD SCH (09:26)
[2024-02-21] MEDS: fentaNYL 25 mcg Patch TD SCH (09:26)
[2024-02-21] MEDS: Methocarbamol 500 MG TAB PO SCH ×2 (10:38→15:46)
[2024-02-21] MEDS: Ondansetron PF 4 MG/2 ML Vial IVP PRN (17:21)
[2024-02-21] MEDS: Senokot S 8.6-50 MG TAB PO SCH (19:48)
[2024-02-21] MEDS: Enoxaparin 40 MG (0.4 mL) SYRINGE SC SCH (19:48)
[2024-02-22 05:43] LABS: #Basophils Less than 0.03 10x3/uL (0.0-0.2); %Basophils 0.3 % (0.0-1.0); %Eosinophils 1.1 % (0.0-10.0); %Lymphocytes 17.6 % (21.0-51.0); %Monocytes 10.3 % (0.0-10.0); %Neutrophils 70.2 % (42.0-75.0); Hematocrit 24.2 % (36.0-47.0); Hemoglobin 8.3 g/dL (12.0-16.0); Mean Corpuscular HGB CONC 34.3 g/dL (32.0-36.0); Mean Corpuscular Volume 93.4 fL (78.0-98.0); Mean Platelet Volume 9.6 fL (7.4-10.4); Platelet Count 139 10x3/uL (130-400); RBC Distribution Width 16.2 % (11.5-14.5); Red Blood Cell (RBC) Count 2.59 mill/uL (4.20-5.40)
[2024-02-22 05:54] LABS: Anion Gap 11 mmol/L (10-20); BUN (Urea Nitrogen) 16 mg/dL (9.8-20.1); Calc. Creatinine Clearance 97 mL/min (70-130); Calcium 8.8 mg/dL (7.8-10.44); Carbon Dioxide 22 mmol/L (22-29); Chloride 97 mmol/L (98-107); Estimated GFR 101; Glucose 63 mg/dL (70-105); Potassium 4.1 mmol/L (3.5-5.1); Sodium 126 mmol/L (136-145)
[2024-02-22] MEDS: Sodium Chloride 1 GM TAB PO SCH (07:40)
[2024-02-22] MEDS: Polyethylene Glycol 3350 17 GM Packet PO SCH (07:45)
[2024-02-22] MEDS: Ondansetron ODT 4 MG TAB PO PRN (11:20)
[2024-02-23 08:40] LABS: #Basophils Less than 0.03 10x3/uL (0.0-0.2); %Basophils 0.1 % (0.0-1.0); %Eosinophils 0.6 % (0.0-10.0); %Lymphocytes 19.1 % (21.0-51.0); %Neutrophils 69.6 % (42.0-75.0); Hemoglobin 8.3 g/dL (12.0-16.0); Mean Corpuscular HGB CONC 34.6 g/dL (32.0-36.0); Mean Corpuscular Hemoglobin 32.5 pg (27.0-31.0); Mean Corpuscular Volume 94.1 fL (78.0-98.0); Platelet Count 152 10x3/uL (130-400); Red Blood Cell (RBC) Count 2.55 mill/uL (4.20-5.40)
[2024-02-23 09:12] LABS: Anion Gap 15 mmol/L (10-20); BUN (Urea Nitrogen) 21 mg/dL (9.8-20.1); Calc. Creatinine Clearance 81 mL/min (70-130); Calcium 8.6 mg/dL (7.8-10.44); Carbon Dioxide 20 mmol/L (22-29); Chloride 93 mmol/L (98-107); Estimated GFR 91; Glucose 129 mg/dL (70-105); Sodium 123 mmol/L (136-145)
[2024-02-24] MEDS: traMADol HCl 50 MG TAB PO PRN (06:09)
[2024-02-24] MEDS: Sodium Chloride 1 GM TAB PO SCH (14:20)
[2024-02-25 07:10] LABS: Anion Gap 17 mmol/L (10-20); BUN (Urea Nitrogen) 11 mg/dL (9.8-20.1); Calc. Creatinine Clearance 107 mL/min (70-130); Calcium 9.2 mg/dL (7.8-10.44); Carbon Dioxide 21 mmol/L (22-29); Chloride 96 mmol/L (98-107); Estimated GFR 104; Glucose 76 mg/dL (70-105); Potassium 4.7 mmol/L (3.5-5.1); Sodium 129 mmol/L (136-145)
[2024-02-25 12:25] VITALS: BP 174/90; TEMP 98
== END 2024-02-25 15:30 | DRG 481 ==
LOC: ERS 08:43 → SURG A 10:51
PROVIDERS: ADMIT Student in an Organized Health Care Education/Training Program; ATTEND Student in an Organized Health Care Education/Training Program
PROC: 0QS706Z Reposition Left Upper Femur with Intramedullary Internal Fixation Device, Open Approach (ICD-10-PCS; principal; 2024-02-20)
DX: S72.142A Displaced intertrochanteric fracture of left femur, initial encounter for closed fracture (principal); C74.90 Malignant neoplasm of unspecified part of unspecified adrenal gland; E87.1 Hypo-osmolality and hyponatremia; S42.252A Displaced fracture of greater tuberosity of left humerus, initial encounter for closed fracture; W18.30XA Fall on same level, unspecified, initial encounter; E11.9 Type 2 diabetes mellitus without complications; I10 Essential (primary) hypertension; Z90.89 Acquired absence of other organs; Z90.710 Acquired absence of both cervix and uterus; F17.210 Nicotine dependence, cigarettes, uncomplicated; Z79.84 Long term (current) use of oral hypoglycemic drugs; Z79.899 Other long term (current) drug therapy; Z90.49 Acquired absence of other specified parts of digestive tract; Z98.890 Other specified postprocedural states
CPT/HCPCS: 36415; 36416; 70450; 71045; 72125; 72170; 80048; 80053; 85025; 85610; 85730; 86850; 86900; 86901; 86922; 96374; 96375; C1713; G0390; J1100; J1171; J1650; J2270; J2272; J2405; J2550; J2704; J2800; J3010; Q0162

== ENCOUNTER 2024-03-11 14:03 | Emergency (ER) | payer BC ==
[2024-03-11] MEDS ORDERED: fentaNYL 50 mcg/mL 1 mL Vial ONE (15:54)
== END 2024-03-11 17:26 ==
LOC: ERS 14:03
DX: S72.112A Displaced fracture of greater trochanter of left femur, initial encounter for closed fracture (principal); I10 Essential (primary) hypertension; E11.9 Type 2 diabetes mellitus without complications; F17.210 Nicotine dependence, cigarettes, uncomplicated; W05.0XXA Fall from non-moving wheelchair, initial encounter
CPT/HCPCS: 93005; 96372; 99284; J3010

== ENCOUNTER 2024-09-08 12:26 | Inpatient (IN) | payer BC ==
[2024-09-08] MEDS ORDERED: Iopamidol-370 76% 500 ML MDV (1 ML CHARGE) ONE (12:58)
[2024-09-08] MEDS ORDERED: Metoclopramide HCl 10 MG (2 mL) VIAL ONE (12:59)
[2024-09-08] MEDS ORDERED: Famotidine/PF 20 mg/2ml Vial ONE (13:00)
[2024-09-08 13:06] LABS: #Basophils 0.08 10x3/uL (0.0-0.2); #Eosinophils 0.35 10x3/uL (0.0-0.7); #Monocytes 1.17 10x3/uL (0.11-0.59); #Neutrophils 13.32 10x3/uL (1.40-6.50); %Basophils 0.4 % (0.0-1.0); %Eosinophils 1.9 % (0.0-10.0); %Lymphocytes 18.8 % (21.0-51.0); %Monocytes 6.3 % (0.0-10.0); %Neutrophils 71.7 % (42.0-75.0); Hematocrit 37.1 % (36.0-47.0); Hemoglobin 13.1 g/dL (12.0-16.0); Mean Corpuscular Hemoglobin 30.8 pg (27.0-31.0); Mean Corpuscular Volume 87.3 fL (78.0-98.0); Platelet Count 353 10x3/uL (130-400); Red Blood Cell (RBC) Count 4.25 mill/uL (4.20-5.40); White Blood Cell (WBC) Count 18.58 10x3/uL (4.8-10.8)
[2024-09-08 13:30] LABS: Troponin I 0.417 ng/mL (< 0.028)
[2024-09-08 13:44] LABS: ALT (SGPT) 12 U/L (Less than 34); AST (SGOT) 14 U/L (11-34); Albumin 3.9 g/dL (3.1-4.5); Alkaline Phosphatase 99 U/L (40-110); Anion Gap 18 mmol/L (10-20); BUN (Urea Nitrogen) 9 mg/dL (9.8-20.1); Bilirubin, Total 0.5 mg/dL (0.3-1.2); Calc. Creatinine Clearance 0 mL/min (70-130); Calcium 8.9 mg/dL (7.8-10.44); Carbon Dioxide 18 mmol/L (22-29); Chloride 104 mmol/L (98-107); Globulin 3.3 g/dL (2.4-3.5); Glucose 209 mg/dL (70-105); Lipase 14 U/L (8-78); Magnesium 1.5 mg/dL (1.6-2.6); Potassium 3.7 mmol/L (3.5-5.1); Sodium 136 mmol/L (136-145)
[2024-09-08] MEDS ORDERED: Aspirin Chewable 81 MG TAB ONE (14:33)
[2024-09-08] MEDS ORDERED: Magnesium 2 GM/50 ML BAG (IN WATER) ONE (14:34)
[2024-09-08] MEDS ORDERED: Ondansetron PF 4 MG/2 ML Vial ONE (14:36)
[2024-09-08 15:26] LABS: Troponin I 1.222 ng/mL (< 0.028)
[2024-09-08] MEDS ORDERED: Nitroglycerin 0.4 MG TAB 1 EACH ONE (15:37)
[2024-09-08] MEDS ORDERED: Heparin 5,000 UNITS/ML VIAL ONE (15:37)
[2024-09-08] MEDS ORDERED: Lidocaine 1% (PF) 30 ML VIAL ONE (15:37)
[2024-09-08] MEDS ORDERED: Heparin 10,000 UNITS/ 10 ML VIAL ONE ×2 (15:37→15:50)
[2024-09-08] MEDS ORDERED: cefTRIAXone (ROCEPHIN) 2 GM VIAL ONE (15:38)
[2024-09-08] MEDS ORDERED: Nitroglycerin 50 MG/250 ML BOT 250 ML ONE (15:38)
[2024-09-08] MEDS ORDERED: metroNIDAZOLE 500 MG (100 mL) BAG ONE (15:38)
[2024-09-08] MEDS ORDERED: PHENYLEPHRINE-NS 100 MCG/ML 10 ML SYRINGE ONE (15:38)
[2024-09-08] MEDS ORDERED: Acetaminophen/Codeine 30-300mg Tablet PO PRN (17:00)
[2024-09-08] MEDS ORDERED: Nitroglycerin 0.4 MG TAB (25 Tab Bottle) SL PRN (17:00)
[2024-09-08] MEDS: Acetaminophen/Codeine 30-300mg Tablet PO PRN (17:49)
[2024-09-08 17:54] VITALS: BMI 28.4
[2024-09-08] MEDS: HYDROcodone/Acetaminophen 10/325 mg Tablet PO PRN (21:43)
[2024-09-08] MEDS: Famotidine/PF 20 mg/2ml Vial SLOW IVP SCH (21:46)
[2024-09-08] MEDS ORDERED: Electrolyte Replacement Protocol 1 EACH FS PRN (22:09)
[2024-09-08] MEDS ORDERED: Glucagon 1 MG/ML KIT IM PRN (22:10)
[2024-09-08] MEDS ORDERED: Dextrose 50% Abboject 50 ML SYRINGE SLOW IVP PRN (22:10)
[2024-09-08] MEDS: Azithromycin 500 MG in Sodium Chloride 0.9% 250 ML 250 ML IVPB SCH (22:24)
[2024-09-09] MEDS: Guaifenesin DM 100-10/5 ML UDCUP PO PRN (04:29)
[2024-09-09 06:58] LABS: Anion Gap 13 mmol/L (10-20); BUN (Urea Nitrogen) 6 mg/dL (9.8-20.1); Calc. Creatinine Clearance 138 mL/min (70-130); Calcium 8.0 mg/dL (7.8-10.44); Carbon Dioxide 17 mmol/L (22-29); Chloride 109 mmol/L (98-107); Glucose 144 mg/dL (70-105); Potassium 3.8 mmol/L (3.5-5.1); Sodium 135 mmol/L (136-145)
[2024-09-09 07:21] LABS: Free T4 (Free Thyroxine) 1.23 ng/dL (0.70-1.48); Thyroid Stimulating Hormone 6.628 uIU/mL (0.35-4.94)
[2024-09-09 07:40] LABS: #Basophils 0.03 10x3/uL (0.0-0.2); #Eosinophils 0.18 10x3/uL (0.0-0.7); #Monocytes 0.72 10x3/uL (0.11-0.59); #Neutrophils 7.01 10x3/uL (1.40-6.50); %Basophils 0.3 % (0.0-1.0); %Eosinophils 1.7 % (0.0-10.0); %Lymphocytes 23.5 % (21.0-51.0); %Monocytes 6.9 % (0.0-10.0); %Neutrophils 66.9 % (42.0-75.0); Hematocrit 30.8 % (36.0-47.0); Hemoglobin 10.8 g/dL (12.0-16.0); Mean Corpuscular Hemoglobin 31.3 pg (27.0-31.0); Mean Corpuscular Volume 89.3 fL (78.0-98.0); Platelet Count 235 10x3/uL (130-400); Red Blood Cell (RBC) Count 3.45 mill/uL (4.20-5.40); White Blood Cell (WBC) Count 10.47 10x3/uL (4.8-10.8)
[2024-09-09 07:53] LABS: Hematocrit 30.5 % (36.0-47.0); Hemoglobin 10.9 g/dL (12.0-16.0); Platelet Count 229 10x3/uL (130-400)
[2024-09-09] MEDS: Metoprolol Succinate XL 25 MG ER.TAB PO SCH (08:21)
[2024-09-09] MEDS: BuPROPion XL 150 MG ER.TAB PO SCH (08:21)
[2024-09-09] MEDS: Heparin 10,000 UNITS/ 10 ML VIAL SLOW IVP SCH (08:22)
[2024-09-09] MEDS: DULoxetine 20 MG CAP PO SCH (08:22)
[2024-09-09] MEDS: Dapagliflozin Propanediol 10 MG TAB PO SCH (08:32)
[2024-09-09] MEDS ORDERED: Enoxaparin 40 MG (0.4 mL) SYRINGE SC SCH (09:00)
[2024-09-09] MEDS ORDERED: BuPROPion XL 150 MG ER.TAB PO SCH (09:00)
[2024-09-09] MEDS ORDERED: DULoxetine 30 MG CAP PO SCH (09:00)
[2024-09-09] MEDS: Ondansetron PF 4 MG/2 ML Vial IVP PRN (10:30)
[2024-09-09] MEDS: Magnesium 2 GM/50 ML BAG (IN WATER) ONE (11:43)
[2024-09-09] MEDS: Magnesium 2 GM/50 ML(in water) 2 GM in Premix 1 BAG IVPB SCH (11:43)
[2024-09-09] MEDS: cefTRIAXone\\ROCEPHIN 1 GM in Sodium Chloride 0.9% 100 ML IVPB SCH (15:17)
[2024-09-09 15:22] VITALS: BMI 28.6
[2024-09-09] MEDS: guaiFENesin/Codeine 200 mg/20 mg 10 ml Cup PO SCH (21:12)
[2024-09-10] MEDS: guaiFENesin/Codeine 200 mg/20 mg 10 ml Cup PO PRN (03:27)
[2024-09-10] MEDS: Apixaban 5 MG TAB PO SCH (09:11)
[2024-09-10] MEDS: Benzonatate 100 MG CAP PO PRN (15:41)
[2024-09-10 19:39] VITALS: BP 115/66; TEMP 98.1
== END 2024-09-10 20:00 | disposition home or self-care (01) | DRG 280 ==
LOC: ERS 12:26 → CCL 16:01 → CCU 17:00 → 2NO 09-09 17:01
PROVIDERS: ADMIT Internal Medicine Cardiovascular Disease; ATTEND Internal Medicine Cardiovascular Disease
PROC: 4A023N7 Measurement of Cardiac Sampling and Pressure, Left Heart, Percutaneous Approach (ICD-10-PCS; principal; 2024-09-08)
PROC: B2151ZZ Fluoroscopy of Left Heart using Low Osmolar Contrast (ICD-10-PCS; 2024-09-08)
PROC: B2111ZZ Fluoroscopy of Multiple Coronary Arteries using Low Osmolar Contrast (ICD-10-PCS; 2024-09-08)
PROC: 3E03329 Introduction of Other Anti-infective into Peripheral Vein, Percutaneous Approach (ICD-10-PCS; 2024-09-08)
PROC: 3E033XZ Introduction of Vasopressor into Peripheral Vein, Percutaneous Approach (ICD-10-PCS; 2024-09-08)
PROC: 5A09357 Assistance with Respiratory Ventilation, Less than 24 Consecutive Hours, Continuous Positive Airway Pressure (ICD-10-PCS; 2024-09-09)
DX: I51.81 Takotsubo syndrome (principal); J18.9 Pneumonia, unspecified organism; I21.9 Acute myocardial infarction, unspecified; C74.91 Malignant neoplasm of unspecified part of right adrenal gland; J91.8 Pleural effusion in other conditions classified elsewhere; D62 Acute posthemorrhagic anemia; I24.9 Acute ischemic heart disease, unspecified; C74.92 Malignant neoplasm of unspecified part of left adrenal gland; Z66 Do not resuscitate; G89.3 Neoplasm related pain (acute) (chronic); F17.210 Nicotine dependence, cigarettes, uncomplicated; E03.9 Hypothyroidism, unspecified; K59.09 Other constipation; E11.9 Type 2 diabetes mellitus without complications; F41.9 Anxiety disorder, unspecified; E27.8 Other specified disorders of adrenal gland; J40 Bronchitis, not specified as acute or chronic; Z98.890 Other specified postprocedural states; Z90.710 Acquired absence of both cervix and uterus; Z90.49 Acquired absence of other specified parts of digestive tract; Z90.722 Acquired absence of ovaries, bilateral; Z71.6 Tobacco abuse counseling; Z79.01 Long term (current) use of anticoagulants; Z79.899 Other long term (current) drug therapy
CPT/HCPCS: 36415; 36416; 71045; 71275; 74177; 76705; 80048; 80053; 83605; 83690; 83735; 83880; 84439; 84443; 84481; 84484; 85025; 85347; 85730; 87040; 93005; 93306; 93458; 93798; 94640; 99152; 99153; C1760; C1769; C1894; J0456; J0461; J0696; J1308; J1630; J1644; J1815; J2250; J2270; J2405; J2720; J2765; J3010; J3475; J7050; J7620; Q9967

== ENCOUNTER 2024-09-23 08:00 | Outpatient (CLI) | payer BC | END 2024-09-23 08:01 | LOC: PET 08:00 | PROVIDERS: ATTEND Internal Medicine Hematology & Oncology | DX: C34.31 Malignant neoplasm of lower lobe, right bronchus or lung (principal) | CPT/HCPCS: 78815; A9552 ==

== ENCOUNTER 2024-12-19 08:00 | Outpatient (CLI) | payer BC | END 2024-12-19 08:01 | disposition home or self-care (01) | LOC: PET 08:00 | PROVIDERS: ATTEND Internal Medicine Hematology & Oncology | DX: C34.31 Malignant neoplasm of lower lobe, right bronchus or lung (principal); C80.1 Malignant (primary) neoplasm, unspecified | CPT/HCPCS: 78815; A9552 ==

== ENCOUNTER 2024-12-26 13:08 | Outpatient (CLI) | payer BC | END 2024-12-26 13:09 | disposition home or self-care (01) | LOC: CT 13:08 | PROVIDERS: ATTEND Internal Medicine Hematology & Oncology | DX: C34.31 Malignant neoplasm of lower lobe, right bronchus or lung (principal); C80.1 Malignant (primary) neoplasm, unspecified ==

== ENCOUNTER 2024-12-26 14:51 | Outpatient (CLI) | payer BC | END 2024-12-26 14:52 | disposition home or self-care (01) | LOC: BICRAD 14:51 | PROVIDERS: ATTEND Internal Medicine Hematology & Oncology | DX: C34.31 Malignant neoplasm of lower lobe, right bronchus or lung (principal); J18.9 Pneumonia, unspecified organism | CPT/HCPCS: 71046 ==